=== PATIENT | male | born 1995 | race Hispanic/Latino ===

== ENCOUNTER 2016-11-17 18:59 | Emergency (ER) | payer MEDICAID, OTHER ==
[2016-11-17] MEDS ORDERED: IBUPROFEN 400 MG TAB As Ordered ONE (19:25)
[2016-11-17] MEDS ORDERED: ACETAMINOPHEN 325 MG TAB As Ordered ONE (19:25)
[2016-11-17] MEDS ORDERED: PHENAZOPYRIDINE 100 MG TAB As Ordered ONE (21:13)
[2016-11-17] MEDS ORDERED: NITROFURANTOIN (MACROBID) 100 MG CAP As Ordered ONE (21:13)
--- NOTE | 2016-11-17 21:21 | EDDOCDS ---
Nurse's Notes [facility] Name: Jhonny Summers Age: 21 yrs Sex: Male : 1995 Arrival Date: 11/17/2016 Time: 18:59 Bed Triage 1 Private MD: NO PRIMARY PHYSICIAN, . Diagnosis: Fever presenting with conditions classified elsewhere;Urinary tract infection, site not specified Presentation: 11/17 19:15 Presenting complaint: Patient states: Was at work and developed fever, frequent jo3 urination, blood in urine and a sense that heart was racing. Also reports pain with urination. Adult Sepsis Screening: The patient does not have new or worsening altered mentation. Patient's respiratory rate is less than 22. Systolic blood pressure is greater than 100. Patient has a qSOFA score of 0- Negative Sepsis Screen. Suicide/Homicide risk assessment- the patient denies having any suicidal and/or homicidal ideations and does not present with any other emotional, behavioral or mental health complaints. Status:. Transition of care: patient was not received from another setting of care. 19:15 Acuity: JOHNNY Level 3 jo3 19:15 Method Of Arrival: Walkin/Carried/Asstd jo3 Triage Assessment: 19:19 General: Appears in no apparent distress, Behavior is appropriate for age, cooperative. jo3 HIV screening NA for this visit Offered previously. Neurological: No deficits noted. Level of Consciousness is awake, alert, Oriented to person, place, time. Respiratory: Airway is patent Respiratory effort is even, unlabored. Derm: Skin is pink, warm & dry. Historical: - Allergies: No known drug Allergies; - Home Meds: 1. none - PMHx: none; - PSHx: none; - Social history: Smoking status: Patient states was never smoker of tobacco. No barriers to communication noted, The patient speaks fluent Burmese, Speaks appropriately for age. - Family history: Not pertinent. - : The pt / caregiver states he / she is not on anticoagulants. Home medication list is obtained from the patient. - Exposure Risk Screening:: None identified. Screenin:19 Screening information is obtained from the patient. Fall risk: No risks identified. jo3 Assistance ADL's: requires no assistance with activities of daily living. Abuse/DV Screen: The patient / caregiver reports he/she is: not in a situation that causes fear, pain or injury. Nutritional screening: No deficits noted. Advance Directives: There is no active DNR order. home support is adequate. Assessment: 21:19 Reassessment: Patient states feeling better. Patient states symptoms have improved. jo3 General: Appears in no apparent distress, comfortable, Behavior is appropriate for age, cooperative, pleasant. Neurological: No deficits noted. Respiratory: Airway is patent Respiratory effort is even, unlabored. Vital Signs: 19:02 BP 164 / 89 LA Sitting (auto/reg); Pulse 145 LA; Resp 18 S; Temp 102.3(O); Pulse Ox mt4 100% on R/A; Weight 58.97 kg (R); Height 5 ft. 5 in. (165.10 cm) (R); Pain 7/10; 20:41 BP 106 / 61; Pulse 119; Resp 16; Temp 101.1; Pulse Ox 97% on R/A; Pain 5/10; sew 19:02 Body Mass Index 21.63 (58.97 kg, 165.10 cm) mt4 Vitals: 19:02 Log In Time: November 17, 2016 at 18:59. mt4 ED Course: 19:01 Patient visited by Ines Squires. mt4 19:01 Patient moved to Waiting mt4 19:02 NO PRIMARY PHYSICIAN, . is Private Physician. mt4 19:04 Patient moved to Pre RCE mt4 19:10 Patient moved to PR2 / 26 jo3 19:19 Triage Initiated jo3 19:20 Patient visited by Bonita Breaux RN. jo3 19:23 Patient visited by Daphnie Richmond. sew 19:23 EKG done. (by ED staff). Reviewed by Scotty Geller DO. sew 19:36 Patient moved to TR4 jo3 19:37 Urine Culture Sent. jo3 19:37 Urinalysis Sent. jo3 19:50 Patient name changed from Jhonny\S\\S\Summers\S\ to Jhonny\S\ \S\Summers. EDMS 19:50 Patient moved to Pre RCE sew 20:06 [facility] Agreement was scanned into [employer] and attached to record. ks16 20:09 Patient moved to Triage 1 jf3 20:35 [facility] dt4 20:35 Scotty Geller DO is Attending Physician. dt4 20:35 Patient visited by Hilary Sandoval PA-C. dt4 20:41 Patient visited by Daphnie Richmond. sew 21:[address] [facility] is Referral Physician. dt4 21:19 The patient / caregiver is instructed regarding the plan of care and ED course. jo3 21:19 No IV's were initiated during this patient's visit. No procedures done that require jo3 assistance. Administered Medications: 19:33 Drug: Acetaminophen 975 mg [acetaminophen 325 mg tablet (3 tabs)] Route: PO; jo3 19:33 Drug: Ibuprofen 400 mg [ibuprofen 400 mg tablet (1 tabs)] Route: PO; jo3 21:18 Drug: Nitrofurantoin 100 mg Route: PO; jo3 21:18 Drug: Phenazopyridine 200 mg [phenazopyridine 100 mg tablet (2 tabs)] Route: PO; jo3 Order Results: Lab Order: Urinalysis; SPEC'M 11/17/16 19:36 Test: APPEARANCE, URINE; Value: CLOUDY; Range: CLEAR; Abnormal: Above high normal; Status: F Test: COLOR, URINE; Value: YELLOW; Range: YELLOW; Status: F Test: PH,URINE; Value: 8.0; Range: 5.0-9.0; Units: UNITS; Status: F Test: SPECIFIC GRAVITY URINE AUTO; Value: 1.019; Range: 1.002-1.035; Status: F Test: PROTEIN, URINE AUTO; Value: 2+; Range: NEGATIVE; Abnormal: Above high normal; Units: mg/dL; Status: F Test: GLUCOSE, URINE (UA) AUTO; Value: NEGATIVE; Range: NEGATIVE; Units: mg/dL; Status: F Test: KETONE, URINE AUTO; Value: NEGATIVE; Range: NEGATIVE; Units: mg/dL; Status: F Test: UROBILINOGEN, URINE AUTO; Value: 0.2; Range: 0.0-2.0; Units: mg/dL; Status: F Test: BILIRUBIN, URINE AUTO; Value: NEGATIVE; Range: NEGATIVE; Status: F Test: NITRITE, URINE AUTO; Value: NEGATIVE; Range: NEGATIVE; Status: F Test: LEUKOCYTE ESTERASE, URINE AUTO; Value: 3+; Range: NEGATIVE; Abnormal: Above high normal; Status: F Test: BLOOD, URINE BLOOD; Value: 3+; Range: NEGATIVE; Abnormal: Above high normal; Status: F Test: WBC, URINE AUTO; Value: TNTC; Range: 0-3; Abnormal: Above high normal; Units: /HPF; Status: F Test: RBC, URINE AUTO; Value: TNTC; Range: 0-3; Abnormal: Above high normal; Units: /HPF; Status: F Test: BACTERIA, URINE AUTO; Value: NEGATIVE; Range: NEGATIVE; Status: F Test: SQUAMOUS EPITHELIAL CELL UR AU; Value: 0; Range: 0-6; Units: /HPF; Status: F Test: HYALINE CAST, URINE AUTO; Value: 0; Range: 0-1; Units: /LPF; Status: F Test: AMORPHOUS SEDIMENT; Value: SMALL; Range: NEGATIVE; Abnormal: Above high normal; Status: F Outcome: 21:03 Discharge ordered by Provider. dt4 21:19 Discharge Assessment: Patient awake, alert and oriented x 3. No cognitive and/or jo3 functional deficits noted. Patient verbalized understanding of disposition instructions. patient administered narcotics - no. The following High Risk Discharge criteria are identified: None. Discharged to home ambulatory. Condition: stable Condition: improved. Discharge instructions given to patient, Instructed on discharge instructions, follow up and referral plans. medication usage, Demonstrated understanding of instructions, medications, Pt was receptive of discharge instructions/ teaching. Prescriptions given X 2, Work note provided to patient. No special radiology studies were completed. Property sent home with patient. 21:20 Patient left the ED. jo3 Signatures: Dispatcher [employer] EDAL Bonita BreauxRN RN [email or web address] Ines Squires mt4 Daphnie Richmond Diane, PA-C PA-C dt4 Ilia Bone RN RN jf3 Ernestina Negrete, Reg Reg ks16 MTDD
--- NOTE | 2016-11-17 21:21 | EDDOCDS ---
Physician Documentation [facility] Name: Jhonny Summers Age: 21 yrs Sex: Male : 1995 Arrival Date: 11/17/2016 Time: 18:59 Bed Triage 1 Private MD: NO PRIMARY PHYSICIAN, . Disposition: 11/17/16 21:03 Discharged to Home/Self Care. Impression: Fever presenting with conditions classified elsewhere, Urinary tract infection, site not specified. - Condition is Stable. - Discharge Instructions: Fever, Adult, Urinary Tract Infection. - Prescriptions for Pyridium 200 mg Oral Tablet - take 1 tablet by ORAL route every 8 hours for 2 days; 6 tablet. Macrobid 100 mg Oral Capsule - take 100 milligrams by ORAL route every 12 hours for 7 days; 14 capsule. - Work Release Form - 2 day, Medication Reconciliation, Local Pharmacy Hours form. - Follow up: Emergency Department; When: As needed; Reason: Worsening of conditions. Follow [facility]: [facility]; When: Call to arrange an appointment; Reason: Recheck today's complaints, Continuance of care, To establish care. - Problem is new. - Symptoms have improved. Historical: - Allergies: No known drug Allergies; - Home Meds: 1. none - PMHx: none; - PSHx: none; - Social history: Smoking status: Patient states was never smoker of tobacco. No barriers to communication noted, The patient speaks fluent Swedish, Speaks appropriately for age. - Family history: Not pertinent. - : The pt / caregiver states he / she is not on anticoagulants. Home medication list is obtained from the patient. - Exposure Risk Screening:: None identified. Vital Signs: 11/17 19:02 BP 164 / 89 LA Sitting (auto/reg); Pulse 145 LA; Resp 18 S; Temp 102.3(O); Pulse Ox mt4 100% on R/A; Weight 58.97 kg / 130.01 lbs (R); Height 5 ft. 5 in. (165.10 cm) (R); Pain 7/10; 20:41 BP 106 / 61; Pulse 119; Resp 16; Temp 101.1; Pulse Ox 97% on R/A; Pain 5/10; sew 19:02 Body Mass Index 21.63 (58.97 kg, 165.10 cm) mt4 MDM: 19:11 ECG WITH READING ER PHYS+CARDIAG ordered. EDMS 19:21 Acetaminophen Tablet 975 mg PO once ordered. dt4 19:21 Ibuprofen 400 mg PO once ordered. dt4 19:21 Urine Culture Ordered. EDMS 19:22 Urinalysis Ordered. EDMS 20:06 [facility] Payment Agreement was scanned into [employer] and attached to record. ks16 20:43 Financial registration complete. ks16 21:02 Nitrofurantoin 100 mg PO once ordered. dt4 21:04 Phenazopyridine 200 mg PO once ordered. dt4 Administered Medications: 19:33 Drug: Acetaminophen 975 mg [acetaminophen 325 mg tablet (3 tabs)] Route: PO; jo3 19:33 Drug: Ibuprofen 400 mg [ibuprofen 400 mg tablet (1 tabs)] Route: PO; jo3 21:18 Drug: Nitrofurantoin 100 mg Route: PO; jo3 21:18 Drug: Phenazopyridine 200 mg [phenazopyridine 100 mg tablet (2 tabs)] Route: PO; jo3 Signatures: Dispatcher [employer] EDMS Bonita Breaux,RN RN jo3 Hilary Sandoval, NATTY PAAlexis dt4 Ernestina Negrete, Reg Reg ks16 The chart was reviewed and I authenticate all verbal orders and agree with the evaluation and treatment provided.Attachments: 20:06 [facility] Payment Agreement ks16 MTDD
--- NOTE | 2016-11-18 17:27 | ECGEPIP ---
Stationary ECG Study [facility] - ED Test Date: 2016-11-17 Pat Name: ALVA LIMA Department: Room: - Gender: M [place]: willie : 1995 Requested By: DARYA GALVAN Order Number: [id number] Reading MD: Lonny Jeffers Measurements Intervals [place] Rate: 125 P: 75 MI: 148 QRS: 79 QRSD: 97 T: 35 QT: 290 QTc: 418 Interpretive Statements [employer] RBBB LVH NSTTW ABNORMALITIES NO PRIORS Electronically Signed On 11-18-2016 17:26:54 EST by Lonny Jeffers
--- NOTE | 2016-11-19 22:22 | EDDOCDS ---
Physician Documentation [facility] Name: Jhonny Summers Age: 21 yrs Sex: Male : 1995 Arrival Date: 11/17/2016 Time: 18:59 Bed Triage 1 Private MD: NO PRIMARY PHYSICIAN, . Disposition: 11/17/16 21:03 Discharged to Home/Self Care. Impression: Fever presenting with conditions classified elsewhere, Urinary tract infection, site not specified. - Condition is Stable. - Discharge Instructions: Fever, Adult, Urinary Tract Infection. - Prescriptions for Pyridium 200 mg Oral Tablet - take 1 tablet by ORAL route every 8 hours for 2 days; 6 tablet. Macrobid 100 mg Oral Capsule - take 100 milligrams by ORAL route every 12 hours for 7 days; 14 capsule. - Work Release Form - 2 day, Medication Reconciliation, Local Pharmacy Hours form. - Follow up: Emergency Department; When: As needed; Reason: Worsening of conditions. Follow up: [facility]; When: Call to arrange an appointment; Reason: Recheck today's complaints, Continuance of care, To establish care. - Problem is new. - Symptoms have improved. Historical: - Allergies: No known drug Allergies; - Home Meds: 1. none - PMHx: none; - PSHx: none; - Social history: Smoking status: Patient states was never smoker of tobacco. No barriers to communication noted, The patient speaks fluent Brazilian, Speaks appropriately for age. - Family history: Not pertinent. - : The pt / caregiver states he / she is not on anticoagulants. Home medication list is obtained from the patient. - Exposure Risk Screening:: None identified. Vital Signs: 11/17 19:02 BP 164 / 89 LA Sitting (auto/reg); Pulse 145 LA; Resp 18 S; Temp 102.3(O); Pulse Ox mt4 100% on R/A; Weight 58.97 kg / 130.01 lbs (R); Height 5 ft. 5 in. (165.10 cm) (R); Pain 7/10; 20:41 BP 106 / 61; Pulse 119; Resp 16; Temp 101.1; Pulse Ox 97% on R/A; Pain 5/10; sew 19:02 Body Mass Index 21.63 (58.97 kg, 165.10 cm) mt4 MDM: 19:11 ECG WITH READING ER PHYS+CARDIAG ordered. EDMS 19:21 Acetaminophen Tablet 975 mg PO once ordered. dt4 19:21 Ibuprofen 400 mg PO once ordered. dt4 19:21 Urine Culture Ordered. EDMS 19:22 Urinalysis Ordered. EDMS 20:06 [facility] Payment Agreement was scanned into [employer] and attached to record. ks16 20:43 Financial registration complete. ks16 21:02 Nitrofurantoin 100 mg PO once ordered. dt4 21:04 Phenazopyridine 200 mg PO once ordered. dt4 11/18 10:59 T-Sheet-- Draft Copy was scanned into [employer] and attached to record. gb 10:59 ECG/EKG was scanned into [employer] and attached to record. gb Administered Medications: 11/17 19:33 Drug: Acetaminophen 975 mg [acetaminophen 325 mg tablet (3 tabs)] Route: PO; jo3 19:33 Drug: Ibuprofen 400 mg [ibuprofen 400 mg tablet (1 tabs)] Route: PO; jo3 21:18 Drug: Nitrofurantoin 100 mg Route: PO; jo3 21:18 Drug: Phenazopyridine 200 mg [phenazopyridine 100 mg tablet (2 tabs)] Route: PO; jo3 Signatures: Dispatcher [employer] EDMS Yoselyn Meyer, Reg Reg gb Bonita Breaux,RN RN jo3 Hilary Sandoval, NATTY PAAlexis dt4 Ernestina Negrete, Reg Reg ks16 The chart was reviewed and I authenticate all verbal orders and agree with the evaluation and treatment provided.Attachments: 20:06 [facility] Payment Agreement ks16 11/18 10:59 T-Sheet-- Draft Copy gb 10:59 ECG/EKG gb Chart Complete MTDD
--- NOTE | 2016-11-19 22:22 | EDDOCDS ---
Physician Documentation [facility] Name: Jhonny Summers Age: 21 yrs Sex: Male : 1995 Arrival Date: 11/17/2016 Time: 18:59 Bed Triage 1 Private MD: NO PRIMARY PHYSICIAN, . Disposition: 11/17/16 21:03 Discharged to Home/Self Care. Impression: Fever presenting with conditions classified elsewhere, Urinary tract infection, site not specified. - Condition is Stable. - Discharge Instructions: Fever, Adult, Urinary Tract Infection. - Prescriptions for Pyridium 200 mg Oral Tablet - take 1 tablet by ORAL route every 8 hours for 2 days; 6 tablet. Macrobid 100 mg Oral Capsule - take 100 milligrams by ORAL route every 12 hours for 7 days; 14 capsule. - Work Release Form - 2 day, Medication Reconciliation, Local Pharmacy Hours form. - Follow up: Emergency Department; When: As needed; Reason: Worsening of conditions. Follow up: [facility]; When: Call to arrange an appointment; Reason: Recheck today's complaints, Continuance of care, To establish care. - Problem is new. - Symptoms have improved. Historical: - Allergies: No known drug Allergies; - Home Meds: 1. none - PMHx: none; - PSHx: none; - Social history: Smoking status: Patient states was never smoker of tobacco. No barriers to communication noted, The patient speaks fluent Ethiopian, Speaks appropriately for age. - Family history: Not pertinent. - : The pt / caregiver states he / she is not on anticoagulants. Home medication list is obtained from the patient. - Exposure Risk Screening:: None identified. Vital Signs: 11/17 19:02 BP 164 / 89 LA Sitting (auto/reg); Pulse 145 LA; Resp 18 S; Temp 102.3(O); Pulse Ox mt4 100% on R/A; Weight 58.97 kg / 130.01 lbs (R); Height 5 ft. 5 in. (165.10 cm) (R); Pain 7/10; 20:41 BP 106 / 61; Pulse 119; Resp 16; Temp 101.1; Pulse Ox 97% on R/A; Pain 5/10; sew 19:02 Body Mass Index 21.63 (58.97 kg, 165.10 cm) mt4 MDM: 19:11 ECG WITH READING ER PHYS+CARDIAG ordered. EDMS 19:21 Acetaminophen Tablet 975 mg PO once ordered. dt4 19:21 Ibuprofen 400 mg PO once ordered. dt4 19:21 Urine Culture Ordered. EDMS 19:22 Urinalysis Ordered. EDMS 20:06 [facility] Payment Agreement was scanned into [employer] and attached to record. ks16 20:43 Financial registration complete. ks16 21:02 Nitrofurantoin 100 mg PO once ordered. dt4 21:04 Phenazopyridine 200 mg PO once ordered. dt4 11/18 10:59 T-Sheet-- Draft Copy was scanned into [employer] and attached to record. gb 10:59 ECG/EKG was scanned into [employer] and attached to record. gb Administered Medications: 11/17 19:33 Drug: Acetaminophen 975 mg [acetaminophen 325 mg tablet (3 tabs)] Route: PO; jo3 19:33 Drug: Ibuprofen 400 mg [ibuprofen 400 mg tablet (1 tabs)] Route: PO; jo3 21:18 Drug: Nitrofurantoin 100 mg Route: PO; jo3 21:18 Drug: Phenazopyridine 200 mg [phenazopyridine 100 mg tablet (2 tabs)] Route: PO; jo3 Signatures: Dispatcher [employer] EDMS Yoselyn Meyer, Reg Reg gb Bonita Breaux,RN RN jo3 Hilary Sandoval, NATTY PAAlexis dt4 Ernestina Negrete, Reg Reg ks16 The chart was reviewed and I authenticate all verbal orders and agree with the evaluation and treatment provided.Attachments: 20:06 [facility] Payment Agreement ks16 11/18 10:59 T-Sheet-- Draft Copy gb 10:59 ECG/EKG gb Chart Complete MTDD
--- NOTE | 2016-11-19 22:22 | EDDOCDS ---
Nurse's Notes [facility] Name: Alva Lima Age: 21 yrs Sex: Male : 1995 Arrival Date: 11/17/2016 Time: 18:59 Bed Triage 1 Private MD: NO PRIMARY PHYSICIAN, . Diagnosis: Fever presenting with conditions classified elsewhere;Urinary tract infection, site not specified Presentation: 11/17 19:15 Presenting complaint: Patient states: Was at work and developed fever, frequent jo3 urination, blood in urine and a sense that heart was racing. Also reports pain with urination. Adult Sepsis Screening: The patient does not have new or worsening altered mentation. Patient's respiratory rate is less than 22. Systolic blood pressure is greater than 100. Patient has a qSOFA score of 0- Negative Sepsis Screen. Suicide/Homicide risk assessment- the patient denies having any suicidal and/or homicidal ideations and does not present with any other emotional, behavioral or mental health complaints. Status:. Transition of care: patient was not received from another setting of care. 19:15 Acuity: JOHNNY Level 3 jo3 19:15 Method Of Arrival: Walkin/Carried/Asstd jo3 Triage Assessment: 19:19 General: Appears in no apparent distress, Behavior is appropriate for age, cooperative. jo3 HIV screening NA for this visit Offered previously. Neurological: No deficits noted. Level of Consciousness is awake, alert, Oriented to person, place, time. Respiratory: Airway is patent Respiratory effort is even, unlabored. Derm: Skin is pink, warm & dry. Historical: - Allergies: No known drug Allergies; - Home Meds: 1. none - PMHx: none; - PSHx: none; - Social history: Smoking status: Patient states was never smoker of tobacco. No barriers to communication noted, The patient speaks fluent Montenegrin, Speaks appropriately for age. - Family history: Not pertinent. - : The pt / caregiver states he / she is not on anticoagulants. Home medication list is obtained from the patient. - Exposure Risk Screening:: None identified. Screenin:19 Screening information is obtained from the patient. Fall risk: No risks identified. jo3 Assistance ADL's: requires no assistance with activities of daily living. Abuse/DV Screen: The patient / caregiver reports he/she is: not in a situation that causes fear, pain or injury. Nutritional screening: No deficits noted. Advance Directives: There is no active DNR order. home support is adequate. Assessment: 21:19 Reassessment: Patient states feeling better. Patient states symptoms have improved. jo3 General: Appears in no apparent distress, comfortable, Behavior is appropriate for age, cooperative, pleasant. Neurological: No deficits noted. Respiratory: Airway is patent Respiratory effort is even, unlabored. Vital Signs: 19:02 BP 164 / 89 LA Sitting (auto/reg); Pulse 145 LA; Resp 18 S; Temp 102.3(O); Pulse Ox mt4 100% on R/A; Weight 58.97 kg (R); Height 5 ft. 5 in. (165.10 cm) (R); Pain 7/10; 20:41 BP 106 / 61; Pulse 119; Resp 16; Temp 101.1; Pulse Ox 97% on R/A; Pain 5/10; sew 19:02 Body Mass Index 21.63 (58.97 kg, 165.10 cm) mt4 Vitals: 19:02 Log In Time: November 17, 2016 at 18:59. mt4 ED Course: 19:01 Patient visited by Ines Squires. mt4 19:01 Patient moved to Waiting mt4 19:02 NO PRIMARY PHYSICIAN, . is Private Physician. mt4 19:04 Patient moved to Pre RCE mt4 19:10 Patient moved to PR2 / 26 jo3 19:19 Triage Initiated jo3 19:20 Patient visited by Bonita Breaux RN. jo3 19:23 Patient visited by Daphnie Richmond. sew 19:23 EKG done. (by ED staff). Reviewed by Scotty Galvan DO. sew 19:36 Patient moved to TR4 jo3 19:37 Urine Culture Sent. jo3 19:37 Urinalysis Sent. jo3 19:50 Patient name changed from Alva\S\\S\Lima\S\ to Alva\S\ \S\Lima. EDMS 19:50 Patient moved to Pre RCE sew 20:06 [facility] Payment Agreement was scanned into [employer] and attached to record. ks16 20:09 Patient moved to Triage 1 jf3 20:35 [facility] dt4 20:35 Scotty Galvan DO is Attending Physician. dt4 20:35 Patient visited by Hilary Sandoval PA-C. dt4 20:41 Patient visited by Daphnie Richmond. sew 21:03 [facility] is Referral Physician. dt4 21:19 The patient / caregiver is instructed regarding the plan of care and ED course. jo3 21:19 No IV's were initiated during this patient's visit. No procedures done that require jo3 assistance. 11/18 10:59 T-Sheet-- Draft Copy was scanned into [employer] and attached to record. gb 10:59 ECG/EKG was scanned into [employer] and attached to record. gb 17:50 EKG-ADULT Returned. EDMS Administered Medications: 11/17 19:33 Drug: Acetaminophen 975 mg [acetaminophen 325 mg tablet (3 tabs)] Route: PO; jo3 19:33 Drug: Ibuprofen 400 mg [ibuprofen 400 mg tablet (1 tabs)] Route: PO; jo3 21:18 Drug: Nitrofurantoin 100 mg Route: PO; jo3 21:18 Drug: Phenazopyridine 200 mg [phenazopyridine 100 mg tablet (2 tabs)] Route: PO; jo3 Order Results: Lab Order: Urinalysis; SPEC'M 11/17/16 19:36 Test: APPEARANCE, URINE; Value: CLOUDY; Range: CLEAR; Abnormal: Above high normal; Status: F Test: COLOR, URINE; Value: YELLOW; Range: YELLOW; Status: F Test: PH,URINE; Value: 8.0; Range: 5.0-9.0; Units: UNITS; Status: F Test: SPECIFIC GRAVITY URINE AUTO; Value: 1.019; Range: 1.002-1.035; Status: F Test: PROTEIN, URINE AUTO; Value: 2+; Range: NEGATIVE; Abnormal: Above high normal; Units: mg/dL; Status: F Test: GLUCOSE, URINE (UA) AUTO; Value: NEGATIVE; Range: NEGATIVE; Units: mg/dL; Status: F Test: KETONE, URINE AUTO; Value: NEGATIVE; Range: NEGATIVE; Units: mg/dL; Status: F Test: UROBILINOGEN, URINE AUTO; Value: 0.2; Range: 0.0-2.0; Units: mg/dL; Status: F Test: BILIRUBIN, URINE AUTO; Value: NEGATIVE; Range: NEGATIVE; Status: F Test: NITRITE, URINE AUTO; Value: NEGATIVE; Range: NEGATIVE; Status: F Test: LEUKOCYTE ESTERASE, URINE AUTO; Value: 3+; Range: NEGATIVE; Abnormal: Above high normal; Status: F Test: BLOOD, URINE BLOOD; Value: 3+; Range: NEGATIVE; Abnormal: Above high normal; Status: F Test: WBC, URINE AUTO; Value: TNTC; Range: 0-3; Abnormal: Above high normal; Units: /HPF; Status: F Test: RBC, URINE AUTO; Value: TNTC; Range: 0-3; Abnormal: Above high normal; Units: /HPF; Status: F Test: BACTERIA, URINE AUTO; Value: NEGATIVE; Range: NEGATIVE; Status: F Test: SQUAMOUS EPITHELIAL CELL UR AU; Value: 0; Range: 0-6; Units: /HPF; Status: F Test: HYALINE CAST, URINE AUTO; Value: 0; Range: 0-1; Units: /LPF; Status: F Test: AMORPHOUS SEDIMENT; Value: SMALL; Range: NEGATIVE; Abnormal: Above high normal; Status: F Lab Order: Urine Culture; SPEC'M 11/17/16 19:36 Test: URINE CULTURE; Value: <EXTERNAL COMMENT eCWMed> FULL REPORT IN LAB NOTES (eCW and Medent).; Status: F Test: URINE CULTURE; Value: ORGANISM 1: KLEBSIELLA PNEUMONIAE; Status: F Test: URINE CULTURE; Value: KLEBSIELLA PNEUMONIAE; Status: F Test: URINE CULTURE; Value: COLONY COUNT CFU/ml >100,000; Status: F Test: URINE CULTURE; Value: GRAM NEG SENSI - VITEK 80; Status: F Test: URINE CULTURE; Value: Method: VIT2; Status: F Test: URINE CULTURE; Value: EXTD BRD SPCTRM BETA LACTAMASE -; Status: F Test: URINE CULTURE; Value: TRIMETHOPRIM/SULFAMETHOXAZOLE <=20 S; Status: F Test: URINE CULTURE; Value: AMPICILLIN >=32 R; Status: F Test: URINE CULTURE; Value: GENTAMICIN <=1 S; Status: F Test: URINE CULTURE; Value: NITROFURANTOIN 64 I; Status: F Test: URINE CULTURE; Value: CEFAZOLIN <=4 S; Status: F Test: URINE CULTURE; Value: LEVOFLOXACIN <=0.12 S; Status: F Test: URINE CULTURE; Value: TOBRAMYCIN <=1 S; Status: F Test: URINE CULTURE; Value: CEFTRIAXONE <=1 S; Status: F Test: URINE CULTURE; Value: CEFTAZIDIME <=1 S; Status: F Test: URINE CULTURE; Value: AMPICILLIN/SULBACTAM 4 S; Status: F Test: URINE CULTURE; Value: PIPERACILLIN/TAZOBACTAM <=4 S; Status: F Test: URINE CULTURE; Value: AZTREONAM <=1 S; Status: F Test: URINE CULTURE; Value: ERTAPENEM <=0.5 S; Status: F Test: URINE CULTURE; Value: MEROPENEM <=0.25 S; Status: F Test: URINE CULTURE; Value: TIGECYCLINE 1 S; Status: F Test: URINE CULTURE; Value: CEFEPIME <=1 S; Status: F Radiology Order: EKG-ADULT Test: EKG-ADULT REASON FOR EXAMINATION: tachycardia; Stationary ECG Study; [facility] - ED; ; Test Date: 2016-11-17; Pat Name: ALVA LIMA Department:; Room: -; Gender: M 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 RBBB; LVH; NSTTW ABNORMALITIES; NO PRIORS; Electronically Signed On 11-18-2016 17:26:54 EST by Lonny Jeffers; Outcome: 21:03 Discharge ordered by Provider. dt4 21:19 Discharge Assessment: Patient awake, alert and oriented x 3. No cognitive and/or jo3 functional deficits noted. Patient verbalized understanding of disposition instructions. patient administered narcotics - no. The following High Risk Discharge criteria are identified: None. Discharged to home ambulatory. Condition: stable Condition: improved. Discharge instructions given to patient, Instructed on discharge instructions, follow up and referral plans. medication usage, Demonstrated understanding of instructions, medications, Pt was receptive of discharge instructions/ teaching. Prescriptions given X 2, Work note provided to patient. No special radiology studies were completed. Property sent home with patient. 21:20 Patient left the ED. jo3 11/19 11:12 Lab/X-ray follow up: Urine culture results reviewed with Dr. Baird and Rx written for faustino Levaquin 500 mg po daily X 10 days - unable to contact patient - no home phone. Will send certified letter so we can call Rx to patient's pharmacy. Signatures: Dispatcher [employer] Celina Herrera RN RN Yoselyn Lance, Reg Reg gb Bonita Breaux RN RN joInes Steele mt4 Daphnie Richmond Diane, PA-C PA-C dt4 Ilia Bone RN RN Ernestina Becker, Reg Reg [email or web address] [facility]
--- NOTE | 2016-12-06 09:28 | EDDOCDS ---
Physician Documentation [facility] Name: Jhonny Summers Age: 21 yrs Sex: Male : 1995 Arrival Date: 11/17/2016 Time: 18:59 Bed Triage 1 Private MD: NO PRIMARY PHYSICIAN, . Disposition: 11/17/16 21:03 Discharged to Home/Self Care. Impression: Fever presenting with conditions classified elsewhere, Urinary tract infection, site not specified. - Condition is Stable. - Discharge Instructions: Fever, Adult, Urinary Tract Infection. - Prescriptions for Pyridium 200 mg Oral Tablet - take 1 tablet by ORAL route every 8 hours for 2 days; 6 tablet. Macrobid 100 mg Oral Capsule - take 100 milligrams by ORAL route every 12 hours for 7 days; 14 capsule. - Work Release Form - 2 day, Medication Reconciliation, Local Pharmacy Hours form. - Follow up: Emergency Department; When: As needed; Reason: Worsening of conditions. [facility]: [facility]; When: Call to arrange an appointment; Reason: Recheck today's complaints, Continuance of care, To establish care. - Problem is new. - Symptoms have improved. Historical: - Allergies: No known drug Allergies; - Home Meds: 1. none - PMHx: none; - PSHx: none; - Social history: Smoking status: Patient states was never smoker of tobacco. No barriers to communication noted, The patient speaks fluent Jordanian, Speaks appropriately for age. - Family history: Not pertinent. - : The pt / caregiver states he / she is not on anticoagulants. Home medication list is obtained from the patient. - Exposure Risk Screening:: None identified. Vital Signs: 11/17 19:02 BP 164 / 89 LA Sitting (auto/reg); Pulse 145 LA; Resp 18 S; Temp 102.3(O); Pulse Ox mt4 100% on R/A; Weight 58.97 kg / 130.01 lbs (R); Height 5 ft. 5 in. (165.10 cm) (R); Pain 7/10; 20:41 BP 106 / 61; Pulse 119; Resp 16; Temp 101.1; Pulse Ox 97% on R/A; Pain 5/10; sew 19:02 Body Mass Index 21.63 (58.97 kg, 165.10 cm) mt4 MDM: 19:11 ECG WITH READING ER PHYS+CARDIAG ordered. EDMS 19:21 Acetaminophen Tablet 975 mg PO once ordered. dt4 19:21 Ibuprofen 400 mg PO once ordered. dt4 19:21 Urine Culture Ordered. EDMS 19:22 Urinalysis Ordered. EDMS 20:06 [facility] Payment Agreement was scanned into [employer] and attached to record. ks16 20:43 Financial registration complete. ks16 21:02 Nitrofurantoin 100 mg PO once ordered. dt4 21:04 Phenazopyridine 200 mg PO once ordered. dt4 11/18 10:59 T-Sheet-- Draft Copy was scanned into [employer] and attached to record. gb 10:59 ECG/EKG was scanned into [employer] and attached to record. gb Administered Medications: 11/17 19:33 Drug: Acetaminophen 975 mg [acetaminophen 325 mg tablet (3 tabs)] Route: PO; jo3 19:33 Drug: Ibuprofen 400 mg [ibuprofen 400 mg tablet (1 tabs)] Route: PO; jo3 21:18 Drug: Nitrofurantoin 100 mg Route: PO; jo3 21:18 Drug: Phenazopyridine 200 mg [phenazopyridine 100 mg tablet (2 tabs)] Route: PO; jo3 Signatures: Dispatcher [employer] EDMS Yoselyn Meyer, Reg Reg gb Bonita Breaux,RN RN jo3 Hilary Sandoval, NATTY PAAlexis dt4 Ernestina Negrete, Reg Reg ks16 The chart was reviewed and I authenticate all verbal orders and agree with the evaluation and treatment provided.Attachments: 20:06 [facility] Payment Agreement [email or web address] 11/18 10:59 T-Sheet-- Draft Copy gb 10:59 ECG/EKG gb Chart Complete MTDD
--- NOTE | 2016-12-06 09:28 | EDDOCDS ---
Physician Documentation [facility] Name: Jhonny Summers Age: 21 yrs Sex: Male : 1995 Arrival Date: 11/17/2016 Time: 18:59 Bed Triage 1 Private MD: NO PRIMARY PHYSICIAN, . Disposition: 11/17/16 21:03 Discharged to Home/Self Care. Impression: Fever presenting with conditions classified elsewhere, Urinary tract infection, site not specified. - Condition is Stable. - Discharge Instructions: Fever, Adult, Urinary Tract Infection. - Prescriptions for Pyridium 200 mg Oral Tablet - take 1 tablet by ORAL route every 8 hours for 2 days; 6 tablet. Macrobid 100 mg Oral Capsule - take 100 milligrams by ORAL route every 12 hours for 7 days; 14 capsule. - Work Release Form - 2 day, Medication Reconciliation, Local Pharmacy Hours form. - Follow up: Emergency Department; When: As needed; Reason: Worsening of conditions. [facility]: [facility]; When: Call to arrange an appointment; Reason: Recheck today's complaints, Continuance of care, To establish care. - Problem is new. - Symptoms have improved. Historical: - Allergies: No known drug Allergies; - Home Meds: 1. none - PMHx: none; - PSHx: none; - Social history: Smoking status: Patient states was never smoker of tobacco. No barriers to communication noted, The patient speaks fluent Uruguayan, Speaks appropriately for age. - Family history: Not pertinent. - : The pt / caregiver states he / she is not on anticoagulants. Home medication list is obtained from the patient. - Exposure Risk Screening:: None identified. Vital Signs: 11/17 19:02 BP 164 / 89 LA Sitting (auto/reg); Pulse 145 LA; Resp 18 S; Temp 102.3(O); Pulse Ox mt4 100% on R/A; Weight 58.97 kg / 130.01 lbs (R); Height 5 ft. 5 in. (165.10 cm) (R); Pain 7/10; 20:41 BP 106 / 61; Pulse 119; Resp 16; Temp 101.1; Pulse Ox 97% on R/A; Pain 5/10; sew 19:02 Body Mass Index 21.63 (58.97 kg, 165.10 cm) mt4 MDM: 19:11 ECG WITH READING ER PHYS+CARDIAG ordered. EDMS 19:21 Acetaminophen Tablet 975 mg PO once ordered. dt4 19:21 Ibuprofen 400 mg PO once ordered. dt4 19:21 Urine Culture Ordered. EDMS 19:22 Urinalysis Ordered. EDMS 20:06 [facility] Payment Agreement was scanned into [employer] and attached to record. ks16 20:43 Financial registration complete. ks16 21:02 Nitrofurantoin 100 mg PO once ordered. dt4 21:04 Phenazopyridine 200 mg PO once ordered. dt4 11/18 10:59 T-Sheet-- Draft Copy was scanned into S[employer] and attached to record. gb 10:59 ECG/EKG was scanned into [employer] and attached to record. gb Administered Medications: 11/17 19:33 Drug: Acetaminophen 975 mg [acetaminophen 325 mg tablet (3 tabs)] Route: PO; jo3 19:33 Drug: Ibuprofen 400 mg [ibuprofen 400 mg tablet (1 tabs)] Route: PO; jo3 21:18 Drug: Nitrofurantoin 100 mg Route: PO; jo3 21:18 Drug: Phenazopyridine 200 mg [phenazopyridine 100 mg tablet (2 tabs)] Route: PO; jo3 Signatures: Dispatcher [employer] EDMS Yoselyn Meyer, Reg Reg gb Bonita Breaux,RN RN jo3 Hilary Sandoval, NATTY PAAlexis dt4 Ernestina Negrete, Reg Reg ks16 The chart was reviewed and I authenticate all verbal orders and agree with the evaluation and treatment provided.Attachments: 20:06 [facility] Payment Agreement ks16 11/18 10:59 T-Sheet-- Draft Copy gb 10:59 ECG/EKG gb Chart Complete MTDD
--- NOTE | 2016-12-06 09:28 | EDDOCDS ---
Nurse's Notes [facility] Name: Alva Lima Age: 21 yrs Sex: Male : 1995 Arrival Date: 11/17/2016 Time: 18:59 Bed Triage 1 Private MD: NO PRIMARY PHYSICIAN, . Diagnosis: Fever presenting with conditions classified elsewhere;Urinary tract infection, site not specified Presentation: 11/17 19:15 Presenting complaint: Patient states: Was at work and developed fever, frequent jo3 urination, blood in urine and a sense that heart was racing. Also reports pain with urination. Adult Sepsis Screening: The patient does not have new or worsening altered mentation. Patient's respiratory rate is less than 22. Systolic blood pressure is greater than 100. Patient has a qSOFA score of 0- Negative Sepsis Screen. Suicide/Homicide risk assessment- the patient denies having any suicidal and/or homicidal ideations and does not present with any other emotional, behavioral or mental health complaints. Status:. Transition of care: patient was not received from another setting of care. 19:15 Acuity: JOHNNY Level 3 jo3 19:15 Method Of Arrival: Walkin/Carried/Asstd jo3 Triage Assessment: 19:19 General: Appears in no apparent distress, Behavior is appropriate for age, cooperative. jo3 HIV screening NA for this visit Offered previously. Neurological: No deficits noted. Level of Consciousness is awake, alert, Oriented to person, place, time. Respiratory: Airway is patent Respiratory effort is even, unlabored. Derm: Skin is pink, warm & dry. Historical: - Allergies: No known drug Allergies; - Home Meds: 1. none - PMHx: none; - PSHx: none; - Social history: Smoking status: Patient states was never smoker of tobacco. No barriers to communication noted, The patient speaks fluent Togolese, Speaks appropriately for age. - Family history: Not pertinent. - : The pt / caregiver states he / she is not on anticoagulants. Home medication list is obtained from the patient. - Exposure Risk Screening:: None identified. Screenin:19 Screening information is obtained from the patient. Fall risk: No risks identified. jo3 Assistance ADL's: requires no assistance with activities of daily living. Abuse/DV Screen: The patient / caregiver reports he/she is: not in a situation that causes fear, pain or injury. Nutritional screening: No deficits noted. Advance Directives: There is no active DNR order. home support is adequate. Assessment: 21:19 Reassessment: Patient states feeling better. Patient states symptoms have improved. jo3 General: Appears in no apparent distress, comfortable, Behavior is appropriate for age, cooperative, pleasant. Neurological: No deficits noted. Respiratory: Airway is patent Respiratory effort is even, unlabored. Vital Signs: 19:02 BP 164 / 89 LA Sitting (auto/reg); Pulse 145 LA; Resp 18 S; Temp 102.3(O); Pulse Ox mt4 100% on R/A; Weight 58.97 kg (R); Height 5 ft. 5 in. (165.10 cm) (R); Pain 7/10; 20:41 BP 106 / 61; Pulse 119; Resp 16; Temp 101.1; Pulse Ox 97% on R/A; Pain 5/10; sew 19:02 Body Mass Index 21.63 (58.97 kg, 165.10 cm) mt4 Vitals: 19:02 Log In Time: November 17, 2016 at 18:59. mt4 ED Course: 19:01 Patient visited by Ines Squires. mt4 19:01 Patient moved to Waiting mt4 19:02 NO PRIMARY PHYSICIAN, . is Private Physician. mt4 19:04 Patient moved to Pre RCE mt4 19:10 Patient moved to PR2 / 26 jo3 19:19 Triage Initiated jo3 19:20 Patient visited by Bonita Breaux RN. jo3 19:23 Patient visited by Daphnie Richmond. sew 19:23 EKG done. (by ED staff). Reviewed by Scotty Galavn DO. sew 19:36 Patient moved to TR4 jo3 19:37 Urine Culture Sent. jo3 19:37 Urinalysis Sent. jo3 19:50 Patient name changed from Alva\S\\S\Lima\S\ to Alva\S\ \S\Lima. EDMS 19:50 Patient moved to Pre RCE sew 20:06 [facility] Payment Agreement was scanned into [employer] and attached to record. ks16 20:09 Patient moved to Triage 1 jf3 20:35 [facility]. dt4 20:35 Scotty Galvan DO is Attending Physician. dt4 20:35 Patient visited by Hilary Sandoval PA-C. dt4 20:41 Patient visited by Daphnie Richmond. sew 21:03 [facility] is Referral Physician. dt4 21:19 The patient / caregiver is instructed regarding the plan of care and ED course. jo3 21:19 No IV's were initiated during this patient's visit. No procedures done that require jo3 assistance. 11/18 10:59 T-Sheet-- Draft Copy was scanned into [employer] and attached to record. gb 10:59 ECG/EKG was scanned into [employer] and attached to record. gb 17:50 EKG-ADULT Returned. EDMS Administered Medications: 11/17 19:33 Drug: Acetaminophen 975 mg [acetaminophen 325 mg tablet (3 tabs)] Route: PO; jo3 19:33 Drug: Ibuprofen 400 mg [ibuprofen 400 mg tablet (1 tabs)] Route: PO; jo3 21:18 Drug: Nitrofurantoin 100 mg Route: PO; jo3 21:18 Drug: Phenazopyridine 200 mg [phenazopyridine 100 mg tablet (2 tabs)] Route: PO; jo3 Order Results: Lab Order: Urinalysis; SPEC'M 11/17/16 19:36 Test: APPEARANCE, URINE; Value: CLOUDY; Range: CLEAR; Abnormal: Above high normal; Status: F Test: COLOR, URINE; Value: YELLOW; Range: YELLOW; Status: F Test: PH,URINE; Value: 8.0; Range: 5.0-9.0; Units: UNITS; Status: F Test: SPECIFIC GRAVITY URINE AUTO; Value: 1.019; Range: 1.002-1.035; Status: F Test: PROTEIN, URINE AUTO; Value: 2+; Range: NEGATIVE; Abnormal: Above high normal; Units: mg/dL; Status: F Test: GLUCOSE, URINE (UA) AUTO; Value: NEGATIVE; Range: NEGATIVE; Units: mg/dL; Status: F Test: KETONE, URINE AUTO; Value: NEGATIVE; Range: NEGATIVE; Units: mg/dL; Status: F Test: UROBILINOGEN, URINE AUTO; Value: 0.2; Range: 0.0-2.0; Units: mg/dL; Status: F Test: BILIRUBIN, URINE AUTO; Value: NEGATIVE; Range: NEGATIVE; Status: F Test: NITRITE, URINE AUTO; Value: NEGATIVE; Range: NEGATIVE; Status: F Test: LEUKOCYTE ESTERASE, URINE AUTO; Value: 3+; Range: NEGATIVE; Abnormal: Above high normal; Status: F Test: BLOOD, URINE BLOOD; Value: 3+; Range: NEGATIVE; Abnormal: Above high normal; Status: F Test: WBC, URINE AUTO; Value: TNTC; Range: 0-3; Abnormal: Above high normal; Units: /HPF; Status: F Test: RBC, URINE AUTO; Value: TNTC; Range: 0-3; Abnormal: Above high normal; Units: /HPF; Status: F Test: BACTERIA, URINE AUTO; Value: NEGATIVE; Range: NEGATIVE; Status: F Test: SQUAMOUS EPITHELIAL CELL UR AU; Value: 0; Range: 0-6; Units: /HPF; Status: F Test: HYALINE CAST, URINE AUTO; Value: 0; Range: 0-1; Units: /LPF; Status: F Test: AMORPHOUS SEDIMENT; Value: SMALL; Range: NEGATIVE; Abnormal: Above high normal; Status: F Lab Order: Urine Culture; SPEC'M 11/17/16 19:36 Test: URINE CULTURE; Value: <EXTERNAL COMMENT eCWMed> FULL REPORT IN LAB NOTES (eCW and [employer]).; Status: F Test: URINE CULTURE; Value: ORGANISM 1: KLEBSIELLA PNEUMONIAE; Status: F Test: URINE CULTURE; Value: KLEBSIELLA PNEUMONIAE; Status: F Test: URINE CULTURE; Value: COLONY COUNT CFU/ml >100,000; Status: F Test: URINE CULTURE; Value: GRAM NEG SENSI - VITEK 80; Status: F Test: URINE CULTURE; Value: Method: VIT2; Status: F Test: URINE CULTURE; Value: EXTD BRD SPCTRM BETA LACTAMASE -; Status: F Test: URINE CULTURE; Value: TRIMETHOPRIM/SULFAMETHOXAZOLE <=20 S; Status: F Test: URINE CULTURE; Value: AMPICILLIN >=32 R; Status: F Test: URINE CULTURE; Value: GENTAMICIN <=1 S; Status: F Test: URINE CULTURE; Value: NITROFURANTOIN 64 I; Status: F Test: URINE CULTURE; Value: CEFAZOLIN <=4 S; Status: F Test: URINE CULTURE; Value: LEVOFLOXACIN <=0.12 S; Status: F Test: URINE CULTURE; Value: TOBRAMYCIN <=1 S; Status: F Test: URINE CULTURE; Value: CEFTRIAXONE <=1 S; Status: F Test: URINE CULTURE; Value: CEFTAZIDIME <=1 S; Status: F Test: URINE CULTURE; Value: AMPICILLIN/SULBACTAM 4 S; Status: F Test: URINE CULTURE; Value: PIPERACILLIN/TAZOBACTAM <=4 S; Status: F Test: URINE CULTURE; Value: AZTREONAM <=1 S; Status: F Test: URINE CULTURE; Value: ERTAPENEM <=0.5 S; Status: F Test: URINE CULTURE; Value: MEROPENEM <=0.25 S; Status: F Test: URINE CULTURE; Value: TIGECYCLINE 1 S; Status: F Test: URINE CULTURE; Value: CEFEPIME <=1 S; Status: F Radiology Order: EKG-ADULT Test: EKG-ADULT REASON FOR EXAMINATION: tachycardia; Stationary ECG Study; [facility] - ED; ; Test Date: 2016-11-17; Pat Name: ALVA LIMA Department:; Room: -; Gender: M 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 RBBB; LVH; NSTTW ABNORMALITIES; NO PRIORS; Electronically Signed On 11-18-2016 17:26:54 EST by Lonny Jeffers; Outcome: 21:03 Discharge ordered by Provider. dt4 21:19 Discharge Assessment: Patient awake, alert and oriented x 3. No cognitive and/or jo3 functional deficits noted. Patient verbalized understanding of disposition instructions. patient administered narcotics - no. The following High Risk Discharge criteria are identified: None. Discharged to home ambulatory. Condition: stable Condition: improved. Discharge instructions given to patient, Instructed on discharge instructions, follow up and referral plans. medication usage, Demonstrated understanding of instructions, medications, Pt was receptive of discharge instructions/ teaching. Prescriptions given X 2, Work note provided to patient. No special radiology studies were completed. Property sent home with patient. 21:20 Patient left the ED. jo3 11/19 11:12 Lab/X-ray follow up: Urine culture results reviewed with Dr. Baird and Rx written for faustino Levaquin 500 mg po daily X 10 days - unable to contact patient - no home phone. Will send certified letter so we can call Rx to patient's pharmacy. Signatures: Dispatcher [employer] Celina Herrera RN RN Yoselyn Lance, Reg Reg gb Bonita Breaux RN RN joInes Steele mt4 Daphnie Richmond Diane, PA-C PA-C dt4 Ilia Bone RN RN Ernestina Becker, Reg Reg [id number] Chart Complete [facility]
== END 2016-11-17 21:20 | disposition home or self-care (01) ==
LOC: M ED 18:59
DX: N39.0 Urinary tract infection, site not specified (principal); R50.9 Fever, unspecified